=== PATIENT | male | born 1975 | race African-American/Black ===

== ENCOUNTER 2017-12-26 14:11 | Emergency (ER) | payer OTHER ==
[2017-12-26 14:14] VITALS: BP 148/86; PULSE 90; RESP 16; TEMP 98.6; O2SAT 99
--- NOTE | 2017-12-26 14:36 | PD ---
HPI Chief Complaint: GI Complaint Time Seen by Provider: 14:30 Travel History International Travel<30 days: No Contact w/Intl Traveler<30days: No Traveled to known affect area: No History of Present Illness HPI 41-year-old male with history of diverticulitis presents emergency department for evaluation of what he believes is a flare. Patient states this morning he began having lower abdominal cramping and bloating. He is having more gas. Denies any nausea vomiting. No fever or chills. Pain is moderate in severity and comes in waves. Bowel movements are formed and normal. His last bowel movement was today. He denies any hematochezia. No urinary symptoms. No other symptoms to report. PFSH Past Medical History Gastrointestinal Disorders: Yes Past Surgical History Surgical History: No Previous Surgery Social History Alcohol Use: Yes (OCCASSIONAL) Tobacco Use: No Substance Use: No Allergies-Medications (Allergen,Severity, Reaction): Coded Allergies: No Known Allergies (Unverified , 12/26/17) Reported Meds & Prescriptions Reported Meds & Active Scripts Active Flagyl (Metronidazole) 500 Mg Tab 500 Mg PO TID 10 Days Cipro (Ciprofloxacin HCl) 500 Mg Tab 500 Mg PO BID 10 Days Review of Systems Except as stated in HPI: all other systems reviewed are Neg Physical Exam Narrative GENERAL: Well-nourished male patient in no acute distress SKIN: Focused skin assessment warm/dry. HEAD: Atraumatic. Normocephalic. EYES: Pupils equal and round. No scleral icterus. No injection or drainage. ENT: No nasal bleeding or discharge. Mucous membranes pink and moist. NECK: Trachea midline. No JVD. CARDIOVASCULAR: Regular rate and rhythm. No murmur appreciated. RESPIRATORY: No accessory muscle use. Clear to auscultation. Breath sounds equal bilaterally. GASTROINTESTINAL: Abdomen soft, non-tender, nondistended. Hepatic and splenic margins not palpable. No guarding. No rebound tenderness. MUSCULOSKELETAL: No obvious deformities. No clubbing. No cyanosis. No edema. NEUROLOGICAL: Awake and alert. No obvious cranial nerve deficits. Motor grossly within normal limits. Normal speech. PSYCHIATRIC: Appropriate mood and affect; insight and judgment normal. Data Data Last Documented VS Vital Signs Date Time Temp Pulse Resp B/P (MAP) Pulse Ox O2 Delivery O2 Flow Rate FiO2 12/26/17 14:51 2/3/18 14:14 98.6 90 16 99 Room Air Orders Orders Ed Discharge Order (12/26/17 14:44) MDM Medical Decision Making Medical Screen Exam Complete: Yes Emergency Medical Condition: Yes Medical Record Reviewed: Yes Differential Diagnosis Diverticulitis versus UTI versus colitis versus gastroenteritis Narrative Course 41-year-old male presents to the emergency department for evaluation of lower abdominal pain. Symptoms are consistent with previous diverticulitis exacerbations. I discussed the patient my attending physician who is also assess the patient. Patient's abdominal exam is overall reassuring with some lower abdominal tenderness to palpation. Patient will be treated as though this is a diverticulitis flare. He is encouraged follow-up with primary care provider and to follow-up with a GI specialist. He agrees to return immediately with any acute worsening of symptoms. Diagnosis Primary Impression: Abdominal pain Qualified Codes: R10.30 - Lower abdominal pain, unspecified Additional Impression: History of diverticulitis Referrals: Office Assistant Receptionist Primary Care Physician Patient Instructions: Diverticulitis (ED), Diverticulitis Diet (ED), General Instructions Additional Instructions: Follow up with a primary care provider Gastroenterology follow up is recommended Return to ED with acute worsening of symptoms Med/Other Pt SpecificInfo: Prescription(s) given Scripts Metronidazole (Flagyl) 500 Mg Tab 500 MG PO TID for Infection for 10 Days, TAB 0 Refills Prov: Emilee Sweet 12/26/17 Ciprofloxacin (Cipro) 500 Mg Tab 500 MG PO BID for Infection for 10 Days, #20 TAB 0 Refills Prov: Emilee Sweet 12/26/17 Disposition: 01 DISCHARGE HOME Condition: Stable Emilee Sweet Dec 26, 2017 14:36
--- NOTE | 2017-12-26 14:42 | PD ---
Data Data Last Documented VS Vital Signs Date Time Temp Pulse Resp B/P (MAP) Pulse Ox O2 Delivery O2 Flow Rate FiO2 12/26/17 14:14 98.6 90 16 148/86 (106) 99 Room Air [facility] Supervised Visit with ANIBAL: Yes Narrative Course The history, exam, and medical decision-making in the associated midlevel provider note were completed with my assistance. I reviewed and agree with the findings presented. I attest that I had a [id number] encounter with the patient on the same day, and personally performed and documented my assessment and findings in the medical record. *My assessment and Findings: This is a 41-year-old male who has a history of diverticulitis in the past who presents to the emergency department with 1 day of lower abdominal pain. His symptoms are classic for diverticulitis. He is nontoxic appearing with normal vital signs and no fever. His abdomen is fairly benign. He is tender in the lower abdomen but has no guarding to suggest perforation. I had a conversation with the patient regarding the necessity of lab work or diagnostic imaging. At this time we agreed to do a trial of empiric oral antibiotic therapy given his symptoms are so similar to when he has had this in the past. He will follow a clear liquid diet at home. He will return to the emergency department if his pain at all worsens and he will follow -up with his primary care physician later in the week for a checkup. Scripts No Active Prescriptions or Reported Meds Lilibeth Urbina MD Dec 26, 2017 14:42
[2017-12-26] MEDS ORDERED: CIPR-9 PO (14:48)
[2017-12-26] MEDS ORDERED: METR-1 PO (14:48)
== END 2017-12-26 15:33 | disposition home or self-care (01) ==
LOC: NEPD 14:11
DX: K57.92 Diverticulitis of intestine, part unspecified, without perforation or abscess without bleeding (principal)
CPT/HCPCS: 99283